=== PATIENT | female | born 1930 | race Caucasian/White ===

== ENCOUNTER 2019-10-20 01:49 | Emergency (ER) | payer OTHER ==
[~2019-10-20] VITALS: Ht 149.9 cm; Wt 77.1 kg
[2019-10-20] MEDS ORDERED: COZAAR50 MG PO (02:28)
[2019-10-20] MEDS ORDERED: VERELAN180 MG PO (02:28)
[2019-10-20] MEDS ORDERED: ASPIR 8181 MG PO (02:29)
[2019-10-20] MEDS ORDERED: MUPIROCIN22 GM TOP (03:09)
[2019-10-20] MEDS ORDERED: DUI500 PO (03:09)
== END 2019-10-20 03:35 ==
LOC: ER 01:49
DX: S00.83XA Contusion of other part of head, initial encounter (principal); R51 Headache; W01.0XXA Fall on same level from slipping, tripping and stumbling without subsequent striking against object, initial encounter; Y93.01 Activity, walking, marching and hiking; Y92.488 Other paved roadways as the place of occurrence of the external cause; Y99.8 Other external cause status